=== PATIENT | female | born 1955 | race Caucasian/White ===

== ENCOUNTER 2020-07-27 16:54 | Emergency (ER) | payer OTHER, SELFPAY ==
--- NOTE | ~2020-07-27 | XR_ITS ---
EXAMINATION: XR foot LT min 3V DATE: 07/27/2020 17:30 INDICATION: Left foot pain TECHNIQUE: Dorsoplantar, lateral, and 2 oblique views of the left foot were obtained. COMPARISON: None. FINDINGS: There is no acute fracture. Surgical changes are noted in the third metatarsal. Bone alignm ent is normal. The soft tissues are unremarkable. IMPRESSION: 1. No acute osseous abnormality. Reviewed, dictated and finalized at location A. [facility]
--- NOTE | 2020-07-27 17:10 | ED.LOWEXIN ---
HPI - Extremity Injury (Lower) General Chief Complaint: Extremity Injury, Lower Stated Complaint: LEFT FOOT PAIN Source: patient and RN notes reviewed Limitations: no limitations History of Present Illness HPI Narrative: The obese patient, current non-smoker/occasional drinker, presents with foot pain. 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 Her foot history is remarkable for hammertoe, and osteotomy 3rd MT as a young adult. Discussed possible causes-metatarsalgia, Moran's neuroma, tendinitis, fasciitis, occult stress fracture, etc-advised to follow-up with podiatry Related Data Home Medications Medication Instructions Recorded Confirmed famotidine [Pepcid] 20 mg PO DAILY PRN 07/27/20 07/27/20 levothyroxine 1 mcg PO DAILY 07/27/20 07/27/20 metformin 1 mg PO BID 07/27/20 07/27/20 spironolactone 1 mg PO DAILY 07/27/20 07/27/20 Allergies Allergy/AdvReac Type Severity Reaction Status Date / Time gabapentin Allergy Unknown Verified 07/27/20 17:17 promethazine AdvReac Intermediate Verified 07/27/20 17:17 varenicline AdvReac Unknown Other Verified 07/27/20 17:17 Review of Systems Review of Systems: Narrative: The patient has been informed that they may have pre-hypertension or Hypertension based on a BP reading in the department. I recommend that the patient call the primary care provider listed on their discharge instructions or a physician of their choice this week to arrange follow up for further evaluation of possible pre-hypertension or Hypertension General/Constitutional: No weight loss,fever Ears/Nose/Throat: No: Epistaxis,ear discharge Respiratory: Denies: Hemoptysis Skin: No Lumps, eruption PMFSH Social History Social History Gender identity (if verbalized by the patient): Female Comments At time of signature, agree with nursing past medical, surgical, social and family history. There is no relevant family history pertinent to the presenting complaint Exam Narrative: Exam Narrative: General Appearance: Obese/ Well nourished, Conjunctiva clear Mouth/Throat: Normal appearing, Normal lips, Supple MS-foot: Antalgic gait, nl strength -mostly intact, almost unlimited flexion/extension, Tenderness -mild distal 4>5th MT; no 3-4th web space tenderness, no swelling ,Other -no anterior drawer, no collateral laxity, no Achilles tenderness, no fifth MT tenderness, no prox plantar fascia tenderness) Skin: Warm, Dry, Normal color Neurological: A&O x3, Normal affect Course Vital Signs Vital signs: Vital Signs Temperature 97.8 F 07/27/20 17:18 Pulse Rate 88 07/27/20 17:18 Respiratory Rate 16 07/27/20 17:18 Blood Pressure 154/83 H 07/27/20 17:18 Pulse Oximetry 97 07/27/20 17:18 Temperature 97.8 F 07/27/20 17:18 Pulse Rate 88 07/27/20 17:18 Respiratory Rate 16 07/27/20 17:18 Blood Pressure 154/83 H 07/27/20 17:18 Pulse Oximetry 97 07/27/20 17:18 Discharge Plan Discharge Clinical Impression: Foot pain, left Patient Disposition: Home, Self-Care Condition: Stable Instructions: Metatarsalgia (DC) Additional Instructions: See podiatry in follow-up, with Xray Also try inserts/ changing shoes, and therapy exercises provided Prescriptions: New prednisone 20 mg tablet 60 mg PO DAILY Qty: 15 RF: 0 tramadol 50 mg tablet 50 mg PO TID PRN (Reason: pain) Qty: 15 RF: 1 acetaminophen-codeine 300-30 mg tablet 1 - 2 tablet PO HS PRN (Reason: pain) Qty: 14 RF: 0 No Action metformin 500 mg tablet 1 mg PO BID RF: 0 levothyroxine 175 mcg tablet 1 mcg PO DAILY RF: 0 famotidine [Pepcid] 20 mg Tablet 20 mg PO DAILY PRN (Reason: Indigestion) RF: 0 spironolactone 50 mg tablet 1 mg PO DAILY RF: 0 Follow-up/Referrals: UNKNOWN,DOC
[2020-07-27 17:18] VITALS: BP 154/83; PULSE 88; RESP 16; TEMP 36.6; O2SAT 97
== END 2020-07-27 18:04 | disposition home or self-care (01) ==
PROVIDERS: Emergency Provider Emergency Medicine
DX: M79.672 Pain in left foot (principal); Z87.891 Personal history of nicotine dependence; E11.9 Type 2 diabetes mellitus without complications; E89.0 Postprocedural hypothyroidism
CPT/HCPCS: 73630; 99213; G0463